=== PATIENT | male | born 1945 | race Caucasian/White ===

== ENCOUNTER → 2017-06-05 | Outpatient (CLI) | payer MEDICARE, OTHER ==
[~2017-06-05] MED LIST: ASPIR 8181 M1 PO; CRESTOR10 MG PO; Ecotrin PO; FIBER THERAPY0.52 GM PO; FISH OIL300 MG PO; GLUCOSAMINE CH1 EACH PO; Hyzaar 100-25 PO; Norvasc PO; PREDNISONE10 MG PO; Percocet 5/325,Endoc PO; Senokot S,Pericolace PO; Theragran PO; celeBREX PO
== END | disposition home or self-care (01) ==
LOC: CDC 09:36
DX: Z01.810 Encounter for preprocedural cardiovascular examination (principal); I44.4 Left anterior fascicular block
CPT/HCPCS: 93000